=== PATIENT | female | born 1970 | race Caucasian/White ===

== ENCOUNTER 2017-04-17 00:35 | Observation (INO) | payer OTHER ==
[~2017-04-17 00:35] MED LIST: ATEN25TA PO; CYCL1TAB29 PO; INSU100V2 SQ; INSU1INJ13 SQ; JANU50TA8 PO; LISI10TA PO; OMEP20TA PO; TRAM50TA PO
[2017-04-17 00:57] VITALS: BP 119/61; PULSE 87; RESP 18; TEMP 98.1; O2SAT 97
[2017-04-17] MEDS: ACETAMINOPHEN 500 MG CPLT PO PRN ×2 (02:21→13:40)
[2017-04-17] MEDS ORDERED: NITROGLYCERIN 2% OINT 1 GM PACKET TOPICAL SCH (03:00)
[2017-04-17] MEDS ORDERED: SODIUM CHLORIDE 0.9% FLUSH 10 ML FLUSH IV FLUSH PRN ×2 (03:00)
[2017-04-17] MEDS ORDERED: ONDANSETRON HCL 4 MG/2 ML VIAL IV PRN (03:00)
[2017-04-17 03:33] VITALS: PULSE 74
[2017-04-17 03:34] VITALS: PULSE 92
[2017-04-17 03:36] VITALS: BP 117/56; PULSE 76; RESP 18; TEMP 98; O2SAT 96
[2017-04-17 07:57] VITALS: BP 132/73; PULSE 68; RESP 18; TEMP 97.7; O2SAT 99
[2017-04-17 08:00] VITALS: PULSE 75
--- NOTE | 2017-04-17 08:44 | HHI.HP ---
HPI Primary Care Physician PCP in [place] Chief Complaint Chest pain and headache History of Present Illness 46-year-old female with history of diabetes, hypertension, and family cardiovascular disease presents to emergency room for further evaluation of chest pain and neck ache. Onset Sunday of last week. Reports episode were she became "really mad" then developed a headache and her right orbital area became red. At that time she experienced "pinching" discomfort substernally lasted seconds. No radiation of pain. No associated symptoms of nausea, vomiting, diaphoresis, or dyspnea. She followed up with PCP the next day and told she broke a capillary. Following this she felt "fine." But on Sunday morning, while driving developed a sharp, stabbing discomfort on right side of neck lasted seconds. No radiation of pain or chest discomfort accompanied this. Throughout the day she experienced dizziness, fatigue, chest heaviness and palpitations, therefore decided to come to the emergency room for further evaluation. Currently is chest pain free and denies further palpations or dizziness. Fatigue continues. Reports following with a PCP and currently her diabetes is not controlled. Does not remember most recent Hga1C level. Review of Systems General: Fatigue since yesterday. No weakness, fever, chills, recent illness, or change in appetite. Seen PCP last week and also has appointment scheduled tomorrow to review lab results. HEENT: No PAN, no vision changes CV: As stated above. No current CP, pressure, palpitations, or dizziness RESP: No SOB, cough, sputum production, or history of asthma GI: Has appointment scheduled with a GI specialist next week for anemia and possible colonoscopy. No nausea, vomiting, bowel changes, diarrhea, constipation, pain, distention, melena, or blood in the stool. 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 Denies any chance of . History tubal ligation. EXT: No lower leg edema, no paraesthesias MS: No discomfort or change in ROM NEURO: No difficulty with balance, LOC, motor/sensory deficits PSYCH: No anxiety, depression, or situational stress SKIN: No rashes, no concerning lesions Past Family Social History Allergies: Coded Allergies: ciprofloxacin (Verified Allergy, Severe, Hives, 04/16/17) clarithromycin (Verified Allergy, Severe, Hives, 04/16/17) Past Medical History Diabetes, hypertension, GERD, herniated disc, cyst on thyroid Past Surgical History Tubal ligation, cervical ablation 7 years ago Reported Medications Active Reported Janumet (Sitagliptin-Metformin) 50-1,000 Mg Tab 2 Tab PO DAILY Omeprazole 20 Mg Tab 20 Mg PO DAILY Humulin R Inj (Insulin Human Regular) 1,000 Unit/10 Ml Vial 2-10 Units SQ TIDAC PRN IMPORTANT TO EAT A MEAL WITHIN 30-60 MINUTES OF DOSING Tresiba Flextouch Pen Inj (Insulin Degludec Inj) 600 unit/3 ML Pen 1 Units SQ Lisinopril-Hctz 10-12.5 Mg Tab 1 Tab PO DAILY Atenolol 25 Mg Tab 25 Mg PO DAILY Flexeril (Cyclobenzaprine HCl) 10 Mg Tab 10 Mg PO TID Tramadol (Tramadol HCl) 50 Mg Tab 50 Mg PO Q4H PRN Soma 350 MG Gemfibrozil (dose unknown) PO BID Active Ordered Medications Current Medications Medications (Trade) Dose Ordered Sig/Kevin Route Start Time Stop Time Status Last Admin (NS Flush) 2 ml UNSCH PRN IV FLUSH 04/17/17 03:00 (NS Flush) 2 ml UNSCH PRN IV FLUSH 04/17/17 03:00 (Tylenol) 500 mg Q4H PRN PO 04/17/17 03:00 04/17/17 02:21 (Zofran Inj) 4 mg Q6H PRN IV 04/17/17 03:00 (Nitroglycerin 2% Oint) 1 inch Q6H TOPICAL 04/17/17 03:00 Family History Brother-[place] age 41, Sister-cardiac blockages beginning early 40s, Father [place] age 56, Mother-DM, HTN, cardiac blockages in early 60s. Social History Known diabetes, hypertension, and hyperlipidemia. No known CAD. Diabetes currently uncontrolled with a high HGa1c, can't remember last %, appointment scheduled for tomorrow. Current smoker 1/2 pack/daily for over 20 years. Denies any alcohol or illegal drug use. Past Cardiac Testing Remote 12 years ago treadmill-unremarkable. Physical Exam Vital Signs Vital Signs Date Time Temp Pulse Resp B/P (MAP) Pulse Ox O2 Delivery O2 Flow Rate FiO2 04/17/17 07:57 97.7 68 18 132/73 (92) 99 04/17/17 03:36 98.0 76 18 117/56 (76) 96 04/17/17 03:34 92 04/17/17 03:33 74 04/17/17 00:57 98.1 87 18 119/61 (80) 97 Physical Exam GENERAL: Alert WN, WD, NAD, pleasant, obese, female HEAD: NC, AT EYES: Sclera clear, conjunctiva without injection, pupils equal and round ENT: Mucous membranes pink and moist NECK: Supple, no masses, trachea midline CV: RRR, without murmur, rub, gallop, no JVD, S1-S2 no S3-S4. Chest wall nontender with palpation RESP: Diminished bases, otherwise clear throughout, no crackles, wheeze, rhonchi , symmetrical chest rise, nonlabored, able to speak in full sentences ABD: Soft, NT, ND, no masses, positive bowel tones BACK: No CVAT EXT: Pulses +24, trace bilateral dependent edema MS: Normal tone 4 extremities, nontender, no obvious deformities, full range of motion NEURO: CN II through CN XII grossly intact, motor strength 5/5 PSYCH: A+O 3, pleasant affect, appropriate speech, appropriate mood and affect , insight and judgment SKIN: Normal turgor, normal texture, no lesions, no rashes Laboratory Laboratory Tests Test 04/17/17 08:00 Imaging Chest x-ray completed and [facility] read by radiologist no acute disease. Course Lab work completed in [facility]. BMP estimated GFR 67, random glucose 167, otherwise unremarkable CBC hemoglobin 11.1 hematocrit 34.2 MCV 79, MCH 25.6 otherwise unremarkable. Troponins 3 unremarkable EKG Normal sinus rhythm, normal axis, nonspecific ST changes, T-wave inversions inferiorly Caprini VTE Risk Assessment Caprini VTE Risk Assessment: No/Low Risk (score <= 1) Caprini Risk Assessment Model Point Value = 1 Point Value = 2 Point Value = 3 Point Value = 5 Age 41-60 Minor surgery BMI > 25 kg/m2 Swollen legs Varicose veins or History of unexplained or recurrent spontaneous Oral contraceptives or hormone replacement Sepsis (< 1 month) Serious lung disease, including pneumonia (< 1 month) Abnormal pulmonary function Acute myocardial infarction Congestive heart failure (< 1 month) History of inflammatory bowel disease Medical patient at bed rest Age 61-74 Arthroscopic surgery Major open surgery (> 45 min) Laparoscopic surgery (> 45 min) Malignancy Confined to bed (> 72 hours) Immobilizing plaster cast Central venous access Age >= 75 History of VTE Family history of VTE Factor V Leiden Prothrombin [id number] Lupus anticoagulant Anticardiolipin antibodies Elevated serum homocysteine Heparin-induced thrombocytopenia Other congenital or acquired thrombophilia Stroke (< 1 month) Elective arthroplasty Hip, pelvis, or leg fracture Acute spinal cord injury (< 1 month) Prophylaxis Regimen Total Risk Factor Score Risk Level Prophylaxis Regimen 0-1 Low Early ambulation 2 Moderate Order ONE of the following: *Sequential Compression Device (SCD) *Heparin 5000 units SQ BID 3-4 Higher Order ONE of the following medications: *Heparin 5000 units SQ TID *Enoxaparin/Lovenox 40 mg SQ daily (WT < 150 kg, CrCl > 30 mL/min) *Enoxaparin/Lovenox 30 mg SQ daily (WT < 150 kg, CrCl > 10-29 mL/min) *Enoxaparin/Lovenox 30 mg SQ BID (WT < 150 kg, CrCl > 30 mL/min) AND/OR *Sequential Compression Device (SCD) 5 or more Highest Order ONE of the following medications: *Heparin 5000 units SQ TID (Preferred with Epidurals) *Enoxaparin/Lovenox 40 mg SQ daily (WT < 150 kg, CrCl > 30 mL/min) *Enoxaparin/Lovenox 30 mg SQ daily (WT < 150 kg, CrCl > 10-29 mL/min) *Enoxaparin/Lovenox 30 mg SQ BID (WT < 150 kg, CrCl > 30 mL/min) AND *Sequential Compression Device (SCD) Assessment and Plan Assessment and Plan #1 Atypical chest pain- admitted to chest pain center. Ruled out with 3 sets of EKGs, cardiac enzymes, monitor overnight. Seen and evaluated by Dr. Ale Kolb. Proceed with nuclear treadmill stress test due to nonspecific ST T changes and diabetic history. If unremarkable will discharge later this afternoon. Patient agreeable to plan of care. #2 Diabetes-SSI low dose coverage, hold oral anti-glycemic at this time. #3 Hypertension-continue to monitor, continue lisinopril HCTZ, hold atenolol until after stress testing. #4 Tobacco use-Strongly encouraged and stressed the importance of tobacco sensation. Instructed her to quit smoking. Ruth Jones Apr 17, 2017 08:44
[2017-04-17] MEDS ORDERED: GLUCAGON 1 MG/ML VIAL OTHER PRN (09:00)
[2017-04-17] MEDS ORDERED: DEXTROSE 50% IN WATER 50 ML VIAL(D50) IV PRN (09:00)
[2017-04-17] MEDS ORDERED: NITROGLYCERIN 0.4 MG SL 25 TABS/BTL SL PRN (09:00)
[2017-04-17] MEDS ORDERED: HYDROCHLOROTHIAZIDE 12.5 MG CAP PO SCH (10:00)
[2017-04-17] MEDS ORDERED: ASPIRIN 325 MG TAB PO SCH (10:00)
[2017-04-17] MEDS ORDERED: LISINOPRIL 10 MG TAB PO SCH (10:00)
[2017-04-17] MEDS ORDERED: PANTOPRAZOLE SOD 20 MG DELAYED RELEASE TAB PO SCH (10:00)
[2017-04-17] MEDS ORDERED: ACETAMINOPHEN 500 MG CPLT PO PRN (10:00)
[2017-04-17] MEDS ORDERED: INSULIN ASPART SUPPLEMENTAL SCALE SQ SCH (11:00)
[2017-04-17] MEDS ORDERED: REGADENOSON INJ 0.4 MG/5 ML SYR ONE (12:12)
--- NOTE | 2017-04-17 13:11 | RADRPT ---
EXAM DATE/TIME: 04/17/2017 11:05 [facility] COMPARISON: No previous studies available for comparison. INDICATIONS : Left sided chest pain for one day. Angina. DOSE: 25.4 mCi Tc99m Myoview at stress. 8.7 mCi Tc99m Myoview at rest. 0.4 mg Lexiscan STRESS SYMPTOMS: Heart racing, nausea and dyspnea. EJECTION FRACTION: 61% MEDICAL HISTORY : Diabetes mellitus type 2. Hypertension. SURGICAL HISTORY : Tubal ligation. Cholecystectomy. section. ENCOUNTER: Initial ACUITY: 1 day PAIN SCALE: 6/10 LOCATION: Left chest TECHNIQUE: The patient underwent pharmacologic stress with infusion of prescribed dose. Continuous ECG tracing was monitored during stress. Gated SPECT imaging was performed after stress and conventional SPECT i maging was performed at rest. The examination was performed on a SPECT/CT scanner, both attenuation and non-corrected datasets were reviewed. FINDINGS: DISTRIBUTION: The maximum perfused segment at stress is in the anterolateral wall. PERFUSION STUDY: The pattern of perfusion at stress is within normal limits. GATED STUDY: There is intact wall motion and thickening without hypokinetic or dyskinetic segments. CONCLUSION: 1. Unremarkable myocardial perfusion scan. RISK CATEGORY: Low (<1% Annual Mortality Rate) Sander Aragon MD on April 17, 2017 at 13:08 Board Certified Radiologist. This report was verified electronically.
--- NOTE | 2017-04-17 13:49 | HHI.DCPOC ---
Discharge Care Plan Diagnosis: (1) Atypical chest pain (2) Tobacco abuse (3) Type 2 diabetes mellitus (4) Obesity (5) Hypertension (6) Neck arthralgia Goals to Promote Your Health * To prevent worsening of your condition and complications * To maintain your health at the optimal level Directions to Meet Your Goals Take your medications as prescribed Follow your dietary instruction Follow activity as directed Keep your appointments as scheduled Take your immunizations and boosters as scheduled If your symptoms worsen call your PCP, if no PCP go to Urgent Care Center or Emergency Room Smoking is Dangerous to Your Health. Avoid second hand smoke Call the 24-hour hour crisis hotline for domestic abuse at Ruth Jones Apr 17, 2017 13:49
[2017-04-17] MEDS ORDERED: ATENOLOL 25 MG TAB PO SCH (14:00)
[2017-04-17] MEDS ORDERED: SITAGLIPTIN METFORMIN PO SCH (14:00)
--- NOTE | 2017-04-17 16:59 | TR ---
Date Performed: 04/17/2017 Time Performed: 12:08:04 DOCTOR: Ale Kolb DRUG LIST: CLINICAL HISTORY: REASON FOR TEST: Angina REASON FOR ENDING: OBSERVATION: CONCLUSION: Lexiscan stress test was performed under standard four minute protocol. Radionuclid e was injected one minute prior to ending the test. No electrocardiographic abormalities were present to suggest ischemia. Nuclear imaging and interpretation are pending. COMMENTS:
--- NOTE | 2017-04-17 17:00 | EKG ---
Date Performed: 04/17/2017 Time Performed: 08:10:22 PTAGE: 46 years EKG: Sinus rhythm WITH FIRST DEGREE AV BLOCK POSSIBLE LATERAL MYOCARDIAL INFARCTION POSSIBLE INFERIOR MYOCARDIAL INFAR CTION ABNORMAL ECG Since PREVIOUS TRACING , no significant change noted PREVIOUS TRACIN04/17/2017 02.05 DOCTOR: Ale Kolb Interpretating Date/Time 04/17/2017 16:59:34
--- NOTE | 2017-04-17 17:02 | EKG ---
Date Performed: 04/17/2017 Time Performed: 02:05:30 PTAGE: 46 years EKG: Sinus rhythm WITH FIRST DEGREE AV BLOCK POSSIBLE LATERAL MYOCARDIAL INFARCTION ABNORMAL ECG Since PREVIOUS TRACING , no significant change noted PREVIOUS TRACIN04/16/2017 22.38 DOCTOR: Ale Kolb Interpretating Date/Time 04/17/2017 17:01:26
== END 2017-04-17 14:29 | disposition home or self-care (01) ==
LOC: NEDDLT 00:35 → NEPGCP 00:45
PROVIDERS: ADMIT Internal Medicine Cardiovascular Disease; ATTEND Internal Medicine Cardiovascular Disease
DX: R07.9 Chest pain, unspecified (principal); E11.65 Type 2 diabetes mellitus with hyperglycemia; R94.31 Abnormal electrocardiogram [ECG] [EKG]; I10 Essential (primary) hypertension; E66.9 Obesity, unspecified; E78.5 Hyperlipidemia, unspecified; M54.2 Cervicalgia; F17.200 Nicotine dependence, unspecified, uncomplicated; Z79.84 Long term (current) use of oral hypoglycemic drugs
CPT/HCPCS: 71010; 78452; 80048; 82550; 82948; 83735; 84484; 84702; 85025; 85610; 85730; 93005; 93017; 99291; A9502; G0378; J2270; J2785; 99292